=== PATIENT | female | born 1975 | race Caucasian/White ===

== ENCOUNTER 2019-03-29 16:49 | Emergency (ER) | payer OTHER, MEDICAID ==
--- NOTE | 2019-03-29 17:04 | CPEKG ---
Test Reason : OPEN Blood Pressure : / mmHG Vent. Rate : 085 BPM Atrial Rate : 083 BPM P-R Int : 130 ms QRS Dur : 098 ms QT Int : 360 ms P-R-T Axes : 067 023 063 degrees QTc Int : 428 ms Sinus rhythm Confirmed by Matty Kaplan ([id number]) on 03/29/2019 5:03:38 PM Referred By: PHYSICIAN ED Confirmed By:Matty Kaplan
--- NOTE | 2019-03-29 17:11 | EDPHY ---
H & P Time Seen by Provider: 03/29/19 17:01 HPI/ROS: Chief complaint. Chest pain HPI. Patient is a 43-year-old female with 4 days of left chest discomfort. She tells me that started with moving furniture 2-3 weeks ago. She then had allergies and cough she has been coughing quite hard. 4 days ago she developed mild left anterior chest pain. She says that does radiate to the back. It hurts to push on in the left anterior chest. It feels better with rubbing on her back. She describes the discomfort as a slight pressure. Scale 1-10 it is 1/10. She tells me she is constantly moving things exerting herself without any chest discomfort. Symptoms are not worse with exertion or deep breathing. She has had hypertension since age 13. She had an angiogram that was normal at age 16. She has no unusual leg pain or swelling ROS 10 systems were reviewed and negative with the exception of the elements mentioned in the history of present illness Past Medical/Surgical History: Family history grandfather with HI Hypertension Social History: Single, daily smoker, no alcohol Smoking Status: Current every day smoker Physical Exam: General Appearance: Alert pleasant well-developed female mild distress vital signs are stable Eyes: Pupils equal and round no pallor or injection. ENT, Mouth: Mucous membranes are moist. Respiratory: There are no retractions, lungs are clear to auscultation. Cardiovascular: Regular rate and rhythm. Gastrointestinal: Abdomen is soft and nontender, no masses, bowel sounds normal. Neurological: Awake and alert, sensory and motor exams grossly normal. Skin: Warm and dry, no rashes. Musculoskeletal: Neck is supple nontender. Chest wall is tender to push on just above the left breast. It recreates her pain. Extremities symmetrical, full range of motion. Psychiatric: Patient is oriented X 3, there is no agitation. Constitutional: Initial Vital Signs Temperature (C) 36.8 C 03/29/19 16:54 Heart Rate 99 03/29/19 16:54 Respiratory Rate 18 03/29/19 16:54 Blood Pressure 137/100 H 03/29/19 16:54 O2 Sat (%) 97 03/29/19 16:54 O2 Delivery Mode Room Air Allergies/Adverse Reactions: morphine [Morphine] Allergy (Unknown, Verified 09/26/09 11:52) Home Medications: Medication Instructions Recorded Lisinopril-Hctz 10-12.5 mg Tab 03/29/19 Medical Decision Making - Diagnostics EKG Interpretation: EKG interpreted by me shows normal sinus rhythm normal interval and axis. QRS is normal. There is slight ST elevation in leads 2 and AVF. Otherwise no significant ST elevation or depression. No arrhythmia. The rate is 85 Patient has an old EKG from 2012 which shows the slurring in the inferior leads. The EKG today is unchanged from previous EKG Imaging Results: Imaging Impressions Chest X-Ray 03/29/19 17:26 Impression: Chest negative for acute abnormality. Procedures: IV normal saline, monitor ED Course/Re-evaluation: Re-evaluation 6:05 p.m.. Patient is stable. Patient and I discussed imaging EKG and laboratory evaluation. We discussed treatment plan including criteria for return and recommendation for follow-up and further evaluation. She expresses understanding and agreement Differential Diagnosis: I considered acute coronary syndrome, pneumonia, pneumothorax, pulmonary embolus. Patient has tenderness to palpation that recreates her symptoms. I think that this is musculoskeletal chest pain Heart score- History-0 EKG-0 Age-1 Risk factors-1 Troponin-0 Total-2 - Data Points Laboratory Results: Laboratory Results 03/29/19 16:55 03/29/19 16:55 03/29/19 03/29/19 03/29/19 17:02 16:55 16:55 WBC RBC Hgb Hct MCV MCH MCHC RDW Plt Count MPV Neut % (Auto) Lymph % (Auto) Overton % (Auto) Eos % (Auto) Baso % (Auto) Nucleat RBC Rel Count Absolute Neuts (auto) Absolute Lymphs (auto) Absolute Monos (auto) Absolute Eos (auto) Absolute Basos (auto) Absolute Nucleated RBC Immature Gran % Immature Gran # D-Dimer 0.33 ug/mLFEU ug/mLFEU (0.00-0.50) Sodium 136 mEq/L mEq/L (135-145) Potassium 3.8 mEq/L mEq/L (3.5-5.2) Chloride 100 mEq/L mEq/L (97-110) Carbon Dioxide 21 mEq/l L mEq/l (22-31) Anion Gap 15 mEq/L H mEq/L (6-14) BUN 14 mg/dL mg/dL (7-23) Creatinine 0.8 mg/dL mg/dL (0.6-1.0) Estimated GFR > 60 Glucose 110 mg/dL H mg/dL (70-100) Calcium 10.1 mg/dL mg/dL (8.5-10.4) POC Troponin I 0.00 ng/mL ng/mL (0.00-0.08) 03/29/19 16:55 WBC 11.59 10^3/uL H 10^3/uL (3.80-9.50) RBC 5.62 10^6/uL H 10^6/uL (4.18-5.33) Hgb 17.9 g/dL H g/dL (12.6-16.3) Hct 50.2 % H % (38.0-47.0) MCV 89.3 fL fL (81.5-99.8) MCH 31.9 pg pg (27.9-34.1) MCHC 35.7 g/dL g/dL (32.4-36.7) RDW 12.3 % % (11.5-15.2) Plt Count 374 10^3/uL 10^3/uL (150-400) MPV 10.3 fL fL (8.7-11.7) Neut % (Auto) 58.0 % % (39.3-74.2) Lymph % (Auto) 33.6 % % (15.0-45.0) Overton % (Auto) 6.9 % % (4.5-13.0) Eos % (Auto) 0.8 % % (0.6-7.6) Baso % (Auto) 0.4 % % (0.3-1.7) Nucleat RBC Rel Count 0.0 % % (0.0-0.2) Absolute Neuts (auto) 6.72 10^3/uL H 10^3/uL (1.70-6.50) Absolute Lymphs (auto) 3.90 10^3/uL H 10^3/uL (1.00-3.00) Absolute Monos (auto) 0.80 10^3/uL 10^3/uL (0.30-0.80) Absolute Eos (auto) 0.09 10^3/uL 10^3/uL (0.03-0.40) Absolute Basos (auto) 0.05 10^3/uL 10^3/uL (0.02-0.10) Absolute Nucleated RBC 0.00 10^3/uL 10^3/uL (0-0.01) Immature Gran % 0.3 % % (0.0-1.1) Immature Gran # 0.03 10^3/uL 10^3/uL (0.00-0.10) D-Dimer Sodium Potassium Chloride Carbon Dioxide Anion Gap BUN Creatinine Estimated GFR Glucose Calcium POC Troponin I Point of Care Test Results: Chemistry 03/29/19 17:02 POC Troponin I 0.00 ng/mL ng/mL (0.00-0.08) Departure - Departure Disposition: Home, Routine, Self-Care Clinical Impression: Chest wall pain Condition: Good Instructions: Chest Pain (ED), Chest Wall Pain (ED) Additional Instructions: Ibuprofen 600 mg every 6 hr. Easy activity next 2 days. Return for worsening chest discomfort Follow-up with Cardiology for further evaluation Referrals: NONE *PRIMARY CARE P,. [Primary Care Provider] - As per Instructions John Ricketts MD [Medical Doctor] - 2-3 days, call for appt.
[2019-03-29 17:13] LABS: PLATELET COUNT 374 10^3/uL (150-400)
[2019-03-29 18:22] VITALS: BP 144/92
== END 2019-03-29 18:36 | disposition home or self-care (01) ==
LOC: EDUNIT#
DX: R07.89 Other chest pain (principal); I10 Essential (primary) hypertension; F17.200 Nicotine dependence, unspecified, uncomplicated
CPT/HCPCS: 84484-ER

== ENCOUNTER 2019-04-04 08:19 | Emergency (ER) | payer OTHER, MEDICAID ==
--- NOTE | 2019-04-04 09:29 | EDPHY ---
General - History Smoking Status: Current every day smoker Time Seen by Provider: 04/04/19 08:57 Narrative: CLINICAL IMPRESSION: Situational anxiety ASSESSMENT/PLAN: 43-year-old female presents to the emergency department feeling as though she may be having anxiety attack. Patient was seen in this ED 6 days ago for chest pain had a comprehensive diagnostic workup and was reassured and discharged home. She has contacted Cardiology but not yet have an appointment. She is very tearful and feeling anxious over her symptoms. I reviewed all of her lab workup and chest x-ray results from her recent visit. Patient states just hearing these results has reassured her. I did offer repeat evaluation including EKG, chest x-ray, lab evaluation however patient has declined all of this. She has no history of anxiety. She would like to try prescription for some anxiety medications. Her heart score is 2 and we discussed her cardiac risk factors. I encouraged her to see her primary care doctor and possibly talk to counseling at work over recent increased life stress. Warning signs return to ED sooner discussed discharge. DIFFERENTIAL DX: Differential includes but not limited to situational anxiety, musculoskeletal chest wall pain, ACS, PE, pneumothorax, bronchitis CHIEF COMPLAINT: Possible anxiety HPI: 43-year-old female presents to the emergency department feeling as though she may be having a anxiety attack. Patient was seen in this emergency department 6 days ago for chest pains. She had extensive workup including EKG, troponin, D -dimer and chest x-ray. At the time of evaluation she had been symptomatic for 5 days. Patient reports she has continued to have intermittent reproducible left anterior chest pains and intermittent shortness of breath. Symptoms do seem to resolve with deep breathing and trying to self calm. No fevers or chills. She has contacted the clerical office for an appointment but does not yet have 1. She has had some increased stress with work. She plans to go on vacation this weekend and has been stressed about planning for this. No nausea or vomiting. She has been eating well. No abdominal pain. No headache, dizziness, lightheadedness or fainting episodes. She has never had a problem with anxiety before but lost a best friend recently and has been struggling a little bit since then. No past history of depression. She has had hypertension since she was 13, had cardiac catheterization at that time which was negative, and was diagnosed with hereditary hypertension. She is compliant with medications. She has diet-controlled hyperlipidemia, pre diabetes, she does smoke cigarettes, no first-degree family relative with cardiovascular disease. She denies asymmetric lower extremity swelling PAST MEDICAL HISTORY: Hypertension See triage summary and nurse notes for addition applicable history Pertinent Past Surgical History: None reported Family History: No first-degree family relative with cardiovascular disease Social History: Daily smoker REVIEW OF SYSTEMS: A full 10 point review of systems was negative except for those mentioned in HPI. PHYSICAL EXAM: General Appearance: Alert, oriented, appropriate, cooperative, NAD, tearful, well hydrated, non-toxic appearing, VSS, no hypoxia. HEENT:Oropharynx clear is no erythema or exudates, no tonsillar hypertrophy or asymmetry. Dentition without abnormality.] Neck: Supple, nontender, no lymphadenopathy, no midline pain, FROM, no meningismus. Respiratory: There are no retractions, lungs are clear to auscultation. Reproducible left anterior chest wall tenderness at patient's location of described discomfort Cardiac: Regular rate and rhythm, no murmurs or gallops. Gastrointestinal: Abdomen is soft, nontender, bowel sounds normal, no masses/ hernia, no rigidity, guarding or focal peritoneal findings. Skin: Warm, dry, no rashes, no nodules on palpation. MEDICAL DECISION MAKING: Patient was seen independently. Secondary supervising physician at time of evaluation was: Dr. Kaplan. Diagnosis: Situational anxiety . New, requires workup Summary: See Assessment and Plan for summary of ED visit Patient Progress: Stable for discharge. (Roosevelt Flowers) Medical Decision Making: I did not see this patient while she was in the emergency department. However her care was discussed with the PA while the patient was in the department. I agree with treatment plan and management (Matty Kaplan) - Objective Vital Signs: Initial Vital Signs Temperature (C) 36.9 C 04/04/19 08:31 Heart Rate 80 04/04/19 08:31 Respiratory Rate 16 04/04/19 08:31 Blood Pressure 113/91 H 04/04/19 08:31 O2 Sat (%) 97 04/04/19 08:31 O2 Delivery Mode Room Air Allergies/Adverse Reactions: morphine [Morphine] Allergy (Unknown, Verified 04/04/19 08:31) silver Allergy (Verified 04/04/19 08:31) Home Medications: Medication Instructions Recorded Lisinopril-Hctz 10-12.5 mg Tab 03/29/19 LORazepam [Ativan] 1 tab PO BID PRN #6 tab 04/04/19 Departure - Departure Disposition: Home, Routine, Self-Care Clinical Impression: Situational anxiety Condition: Good Instructions: Lorazepam (By mouth), Anxiety (ED) Additional Instructions: DISCHARGE INSTRUCTIONS FROM YOUR DOCTOR Thank you for visiting our emergency department today. You were treated by a physician dental assistant instructor today and your case was reviewed with our ED Attending physician. Please keep in mind that discharge from the emergency department does not mean that there is nothing wrong - it simply means that we have not identified an emergency condition that requires further evaluation or treatment in the hospital. You should always plan to follow up with primary care for re- evaluation of your condition in the next 2-3 days. If you have been referred to a specialist, please call as soon as possible (today or tomorrow) to schedule your follow up appointment at the appropriate time. WE REVIEWED YOUR RECENT EMERGENCY DEPARTMENT WORKUP WHICH INCLUDED CARDIAC ENZYMES, A D-DIMER, LAB WORK AND CHEST X-RAY. I ALSO REVIEWED YOUR HEART SCORE WITH YOU WHICH IS A SCORE OF 2, CONSIDERED LOW RISK. I DO RECOMMEND THAT YOU SEE CARDIOLOGY AND PRIMARY CARE, PLEASE CALL FOR AN APPOINTMENT. I DID DISCUSS AN OFFER ADDITIONAL CARDIAC WORKUP AND REPEAT LABS AND X-RAYS TODAY WHICH YOU HAVE DECLINED. A SMALL AMOUNT OF ANTIANXIETY MEDICATION WAS PRESCRIBED IF YOU CHOOSE TO TRY THIS. CONTINUE WORKING ON SELF MEDITATION, DEEP BREATHING EXERCISES AND STRESS REDUCTION. CONSIDER CONTACTING HER INSURANCE OR COMPANY OFFERED COUNSELING PROGRAMS. PLEASE RETURN TO THE EMERGENCY DEPARTMENT IMMEDIATELY FOR SEVERE OR WORSENING CHEST PAIN OR SHORTNESS OF BREATH, FAINTING EPISODES, DIZZINESS OR SEVERE HEADACHES, OR ANY OTHER CONCERNS. People present with illnesses and injuries in different ways, and it is always possible that we have missed something. You may always return for re-evaluation if symptoms worsen or if they are not improving or if you develop new/different symptoms. Again, thank you for choosing our emergency department. We hope that you feel better. Referrals: Jesus Weldon MD [Primary Care Provider] - 1-2 days without fail Prescriptions: LORazepam [Ativan] 1 tab PO BID PRN #6 tab PRN Reason: Anxiety
[2019-04-04 09:53] VITALS: BP 123/85
== END 2019-04-04 09:52 | disposition home or self-care (01) ==
DX: F41.9 Anxiety disorder, unspecified (principal); I10 Essential (primary) hypertension; E78.5 Hyperlipidemia, unspecified; R73.03 Prediabetes

== ENCOUNTER 2019-05-22 10:13 | Emergency (ER) | payer OTHER, MEDICAID | END 2019-05-22 13:45 | disposition home or self-care (01) ==